=== PATIENT | female | born 1945 | race Caucasian/White ===

== ENCOUNTER 2019-11-30 16:06 | Emergency (ER) | payer OTHER ==
[~2019-11-30] VITALS: Ht 172.7 cm; Wt 74.8 kg
[2019-11-30] MEDS ORDERED: COZAAR25 MG (16:58)
[2019-11-30] MEDS ORDERED: LIPITOR20 MG (16:58)
[2019-11-30] MEDS ORDERED: TOBRAMYCIN-DEXAM5 ML OP (17:24)
== END 2019-11-30 17:33 | disposition home or self-care (01) ==
LOC: ER 16:06
DX: H01.8 Other specified inflammations of eyelid (principal)